=== PATIENT | female | born 1985 | race American Indian/Alaskan Native ===

== ENCOUNTER 2016-10-02 13:07 | Outpatient (CLI) | payer SELFPAY ==
[2016-10-02] MEDS ORDERED: LACTATED RINGERS 500 ML IV ONE (13:17)
[2016-10-02 13:59] LABS: Bilirubin,Urine NEG (Negative); Blood,Urine NEG (Negative); Ketones,Urine NEG (Negative); Leukocyte Esterase,Urine NEG (Negative); Mucus,Urine FEW /HPF; Nitrite,Urine NEG (Negative); Protein,Urine <15 mg/dL mg/dL (Negative); RBC,Urine < 1.0 /HPF (0.0-6.0); Urobilinogen,Urine < 2.0 mg/dL (<2.0); WBC,Urine < 1.0 /HPF (0.0-6.0)
== END 2016-10-02 14:37 | disposition home or self-care (01) ==
LOC: TRG 13:07
PROVIDERS: ATTEND Obstetrics & Gynecology
DX: O47.02 False labor before 37 completed weeks of gestation, second trimester (principal); Z3A.24 24 weeks gestation of pregnancy
CPT/HCPCS: 59025; 81001

== ENCOUNTER 2016-12-20 07:25 | Outpatient (CLI) | payer MEDICAID ==
[2016-12-20] MEDS ORDERED: LACTATED RINGERS 500 ML IV ONE (07:47)
[2016-12-20 08:24] LABS: Bacteria,Urine 1+ /HPF (Negative); Bilirubin,Urine NEG (Negative); Blood,Urine NEG (Negative); Ketones,Urine NEG (Negative); Leukocyte Esterase,Urine LG (Negative); Mucus,Urine 1+ /HPF; Nitrite,Urine NEG (Negative); Urobilinogen,Urine < 2.0 mg/dL (<2.0)
[2016-12-20 08:44] VITALS: BP 92/53
[2016-12-20] MEDS ORDERED: ROCEPHIN IM ONE (08:56)
[2016-12-20] MEDS ORDERED: XYLOCAINE 1% MPF 5 mL INFILTRATI ONE (09:06)
[2016-12-20] MEDS ORDERED: ROCEPHIN IM SCH (10:00)
== END 2016-12-20 09:55 | disposition home or self-care (01) ==
LOC: TRG 07:25
PROVIDERS: ATTEND Obstetrics & Gynecology
DX: O47.03 False labor before 37 completed weeks of gestation, third trimester (principal); Z3A.32 32 weeks gestation of pregnancy
CPT/HCPCS: 59025; 81001; 87086; 96372; J0696

== ENCOUNTER 2016-12-30 12:02 | Outpatient (CLI) | payer MEDICAID ==
[2016-12-30 12:37] VITALS: BP 93/52
[2016-12-30] MEDS ORDERED: LACTATED RINGERS 500 ML IV ONE ×2 (12:44→13:35)
[2016-12-30] MEDS ORDERED: BRETHINE ONE (13:36)
[2016-12-30] MEDS: BRETHINE SUB-Q SCH ×2 (13:37→14:25)
== END 2016-12-30 15:15 | disposition home or self-care (01) ==
LOC: TRG 12:02
PROVIDERS: ATTEND Obstetrics & Gynecology
DX: O47.03 False labor before 37 completed weeks of gestation, third trimester (principal); Z3A.34 34 weeks gestation of pregnancy
CPT/HCPCS: 59025; 96360; 96372; J3105; J7120

== ENCOUNTER 2017-02-02 20:11 | Inpatient (IN) | payer MEDICAID ==
[2017-02-02] MEDS ORDERED: NUBAIN IV PRN (21:16)
[2017-02-02] MEDS ORDERED: NARCAN 0.4 MG/1 ML IV PRN (21:16)
[2017-02-02] MEDS ORDERED: XYLOCAINE 2% INFILTRATI ONE (21:16)
[2017-02-02] MEDS ORDERED: MINERAL OIL PO PRN (21:16)
[2017-02-02] MEDS ORDERED: BRETHINE IVP PRN (21:16)
[2017-02-02] MEDS ORDERED: ePHEDrine SULFATE IV PRN (21:16)
[2017-02-02] MEDS ORDERED: SUBLIMAZE IV PRN (21:16)
[2017-02-02] MEDS ORDERED: BRETHINE SUB-Q PRN (21:16)
[2017-02-02] MEDS ORDERED: STADOL IV PRN (21:16)
[2017-02-02] MEDS ORDERED: ZOFRAN IV PRN (21:16)
[2017-02-02] MEDS ORDERED: PITOCin/NS 30 UNIT/500ML 30 UNITS/500 ML BAG IV SCH (21:30)
[2017-02-02 21:38] LABS: Hematocrit 24.5 % (30.3-42.9); Hemoglobin 8.1 gm/dl (10.1-14.3); Mean Corpuscular HGB Conc 33 % (30-34); Mean Corpuscular Hemoglobin 31 pg (28-32); Mean Corpuscular Volume 95 fl (79-97); Platelet Count 193 K/mm3 (140-440); Red Blood Count 2.58 M/mm3 (3.65-5.03); Red Cell Distribution Width 12.5 % (13.2-15.2); White Blood Count 5.7 K/mm3 (4.5-11.0)
[2017-02-02] MEDS ORDERED: PITOCin/NS 20 UNIT/1000ML DRIP 20 UNITS/1,000 ML BAG IV SCH (22:00)
--- NOTE | 2017-02-02 22:48 | History and Physical Report ---
History of Present Illness Date of examination: 02/02/17 Date of admission: 02/02/17 21:33 Chief complaint: my water broke, contractions History of present illness: Pt is a 31 year old -Micron[place] female LIONEL 02/10/17 at 38w6d presents with rupture of membranes and regular uterine contractions since 1840 PM. She was noted to be 4-5 cm on admission. She denies vaginal bleeding. She has had care at [facility] since transfer into care at 24 weeks complicated by previous section x 1 secondary to breech presentation and four previous vaginal deliveries, anemia on iron supplementation and genital herpes without lesion or prodrome. She is GBS negative. Past History Past Medical History: no pertinent history Past Surgical History: section (2014) CONTRACTS REPRESENTATIVE History: herpes Family/Genetic History: none Social history: no significant social history - Obstetrical History Expected Date of Delivery: 02/10/17 Actual Gestation: 38 Week(s) 6 Day(s) : 7 Para: 5 Hx # Term Pregnancies: 4 Number of Pregnancies: 1 Spontaneous Abortions: 1 Induced : 0 Number of Living Children: 5 Medications and Allergies Allergies Allergy/AdvReac Type Severity Reaction Status Date / Time No Known Allergies Allergy Verified 01/26/15 13:05 Home Medications Medication Instructions Recorded Confirmed Last Taken Type Doxycycline [Vibramycin CAP] 100 mg PO BID #14 capsule 04/20/14 Unknown Rx Ibuprofen [Motrin] 800 mg PO Q8H PRN #30 tablet 04/20/14 Unknown Rx Methylergonovine [Methergine] 0.2 mg PO Q8HR #6 tablet 04/20/14 Unknown Rx Amoxicillin [Trimox CAP] 500 mg PO Q8H #30 capsule 01/26/15 Unknown Rx Loratadine [Claritin] 10 mg PO DAILY #30 tablet 01/26/15 Unknown Rx Promethazine [Phenergan TAB] 25 mg PO Q6H PRN #12 tablet 01/26/15 Unknown Rx Active Meds: Active Medications Butorphanol Tartrate (Stadol) 2 mg IV Q2H PRN PRN Reason: Pain , Severe (7-10) Fentanyl (Sublimaze) 100 mcg IV Q2H PRN PRN Reason: Labor Pain Lactated Ringer's (Lactated Ringers) 1,000 mls @ 125 mls/hr IV DIRECT MARYA Oxytocin/Sodium Chloride (Pitocin/Ns 20 Unit/1000ml Drip) 20 units in 1,000 mls @ 125 mls/hr IV DIRECT MARYA Oxytocin/Sodium Chloride (Pitocin/Ns 30 Unit/500ml) 30 units in 500 mls @ 4 mls /hr IV TITR MARYA PRN Reason: Protocol Mineral Oil (Mineral Oil) 30 ml PO QHS PRN PRN Reason: Constipation Nalbuphine HCl (Nubain) 10 mg IV Q2H PRN PRN Reason: Pain, Moderate (4-6) Naloxone HCl (Narcan 0.4 Mg/1 Ml) 0.1 mg IV Q2MIN PRN PRN Reason: Res Rate </= 8 or 02 SAT < 92% Ondansetron HCl (Zofran) 4 mg IV Q8H PRN PRN Reason: Nausea And Vomiting Review of Systems All systems: negative - Vital Signs Vital signs: Vital Signs Pulse BP Pulse Ox 74 110/66 98 02/02/17 20:47 02/02/17 20:47 02/02/17 20:47 Temp Pulse Resp BP Pulse Ox 98.3 F 82 16 110/66 77 L 02/02/17 20:49 02/02/17 21:16 02/02/17 20:49 02/02/17 20:47 02/02/17 21:16 - Physical Exam Breasts: Positive: deferred Cardiovascular: Regular rate Lungs: Positive: Clear to auscultation Abdomen: Positive: soft (gravid ) Genitourinary (Female): Positive: normal external genitalia Uterus: Positive: enlarged (gravid ) Extremities: Positive: normal - Obstetrical FHR: category 1 Uterine Contraction Monitor Mode: External Cervical Dilatation: 5 Cervical Effacement Percentage: 60 station: -2 Uterine Contraction Frequency (min): 2-3 min Uterine Contraction Duration: 45 sec Uterine Contraction Pattern: Regular Uterine Tone Measurement Phase: Resting Uterine Contraction Intensity: Moderate Results Result Diagrams: 02/02/17 21:20 Abnormal lab results 02/02/17 Range/Units 21:20 RBC 2.58 L (3.65-5.03) M/mm3 Hgb 8.1 L (10.1-14.3) gm/dl Hct 24.5 L (30.3-42.9) % RDW 12.5 L (13.2-15.2) % All other labs normal. Assessment and Plan A: IUP at 38w6d Active labor Previous section x 1 for malpresentation, 4 successful vaginal deliveries Genital herpes without lesion or prodrome GBS negative P: Admit to labor and delivery. Epidural IUPC Routine intrapartum care.
[2017-02-02] MEDS: LACTATED RINGERS 1,000 ML IV SCH (23:31)
[2017-02-02] MEDS ORDERED: ePHEDrine SULFATE ONE (23:35)
[2017-02-03] MEDS ORDERED: ePHEDrine SULFATE IV PRN (00:11)
[2017-02-03] MEDS ORDERED: NARCAN 2 MG/2 ML IV PRN (00:11)
--- NOTE | 2017-02-03 00:11 | Anesthesia Consultation ---
Anesthesia Consult and Med Hx Date of service: 02/03/17 - Airway Anesthetic Teeth Evaluation: Good ROM Head & Neck: Adequate Mental/Hyoid Distance: Adequate Mallampati Class: Class II Intubation Access Assessment: Probably Good - Pulmonary Exam CTA: Yes - Cardiac Exam Cardiac Exam: RRR - Pre-Operative Health Status ASA Pre-Surgery Classification: ASA2 Proposed Anesthetic Plan: Epidural - Pulmonary Hx Smoking: No Hx Asthma: No COPD: No Hx Pneumonia: No Hx Sleep Apnea: No - Cardiovascular System Hx Hypertension: No Hx Coronary Artery Disease: No Hx Heart Attack/AMI: No Hx Angina: No - Central Nervous System Hx Seizures: No CVA: No Hx Psychiatric Problems: No - Gastrointestinal Hx Gastroesophageal Reflux Disease: Yes (mild but had attack yesterday.) - Endocrine Hx Renal Disease: No Hx End Stage Renal Disease: No Hx Liver Disease: No Hx Non-Insulin Dependent Diabetes: No Hx Thyroid Disease: No Hx Hypothyroidism: No Hx Hyperthyroidism: No - Hematic Hx Anemia: Yes Hx Sickle Cell Disease: No - Other Systems Hx Alcohol Use: No
[2017-02-03] MEDS: LACTATED RINGERS 1,000 ML IV SCH (00:27)
[2017-02-03] MEDS ORDERED: fentaNYL-BUPIV 2 MCG/ML-0.125% 200 MCG/100 ML BAG EPIDURAL SCH (01:00)
--- NOTE | 2017-02-03 03:15 | Event Note ---
Date: 02/03/17 Pt comfortable with epidural. Category II tracing. SVE: 5-/-3. AROM of forebag- copious amount of clear fluid. IUPC and FSE placed. Close monitoring of maternal and status.
[2017-02-03] MEDS ORDERED: METHERGINE IM ONE ×2 (04:15→04:16)
--- NOTE | 2017-02-03 05:30 | Procedure Note ---
OB Delivery Note - Delivery Date of Delivery: 02/03/17 Surgeon: OLIVIA MAJOR Estimated blood loss: 500cc - Vaginal Delivery presentation: vertex Delivery position: OA Intrapartum events: PROM->1hr before delivery, mult.variable deceleratio, uterine atony Delivery induction: none Delivery augmentation: pitocin Delivery monitor: internal FHT, internal uterine Route of delivery: Delivery placenta: spontaneous Episiotomy: none Delivery laceration: 1st degree Delivery repair: vicryl Anesthesia: epidural Delivery comments: Pt progressed to complete/complete/+3 and pushed to deliver a viable male neoate via over intact perineum under epidural anesthesia. Head delivered in MARIIA position followed by shoulders and body. bulb suctioned and placed on maternal abdomen. Cord blood collected. Placenta delivered spontaneously. Uterine atony noted. Methergine 0.2 mg IM administered. Uterus firm. Vagina and perineum explored. First degree perineal laceration repaired with 3-0 Vicryl. EBL 500mL. - Infant A at 1 minute: 8 at 5 minutes: 9 Infant Gender: Male (3393g (7lb 8 oz))
[2017-02-03] MEDS ORDERED: PITOCin/NS 20 UNIT/1000ML DRIP 20 UNITS/1,000 ML BAG IV SCH (06:32)
[2017-02-03] MEDS ORDERED: TYLENOL PO PRN (06:32)
[2017-02-03] MEDS ORDERED: PHENERGAN PO PRN (06:32)
[2017-02-03] MEDS ORDERED: LANSINOH TP PRN (06:32)
[2017-02-03] MEDS ORDERED: SODIUM CHLORIDE FLUSH SYRINGE 10 ML IV PRN (06:32)
[2017-02-03] MEDS ORDERED: TUCKS PAD TP PRN (06:32)
[2017-02-03] MEDS ORDERED: PHENERGAN PR PRN (06:32)
[2017-02-03] MEDS ORDERED: BENADRYL PO PRN (06:32)
[2017-02-03] MEDS ORDERED: DULCOLAX PR PRN (06:32)
[2017-02-03] MEDS ORDERED: NORCO 5/325 PO PRN (06:32)
[2017-02-03] MEDS ORDERED: MILK OF MAGNESIA PO PRN (06:32)
[2017-02-03] MEDS ORDERED: ZOFRAN IV PRN (06:32)
[2017-02-03] MEDS: MOTRIN PO SCH ×3 (07:05→18:32)
[2017-02-03] MEDS: FEOSOL PO SCH (10:18)
[2017-02-03] MEDS: PRENATAL VITAMIN PO SCH (10:18)
[2017-02-04] MEDS: MOTRIN PO SCH (00:55)
[2017-02-04] MEDS ORDERED: M-M-R II VACCINE SUB-Q ONE (05:30)
[2017-02-04] MEDS ORDERED: BOOSTRIX IM ONE (06:00)
--- NOTE | 2017-02-04 09:27 | Progress Note ---
Assessment and Plan - Patient Problems (1) Term Current Visit: Yes Status: Acute Plan to address problem: patient doing well discharge home (2) Spontaneous rupture of amniotic membranes Current Visit: Yes Status: Acute Subjective - Subjective Date of service: 02/04/17 Interval history: Patient tolerating regular diet. Pain well controlled Patient reports: appetite normal, voiding normally, pain well controlled [place]: doing well Objective - Vital Signs Latest vital signs: Vital Signs Temp Pulse Resp BP 02/04/17 00:55 18 02/04/17 00:05 98.6 F 59 L 18 107/55 02/03/17 17:15 98.2 F 56 L 18 98/43 02/03/17 12:15 98.3 F 57 L 18 101/47 Intake and Output 02/03/17 02/04/17 02/04/17 22:59 06:59 14:59 Intake Total 480 480 Balance 480 480 Intake: Oral 480 120 Intake, Free Water 360 Other: Total, Intake Amount 480 120 # Voids Void 1 1 - Exam Uterus: Present: normal, firm - Labs Labs: Abnormal lab results 02/03/17 Range/Units 17:26 Hgb 8.0 L (10.1-14.3) gm/dl Hct 24.0 L (30.3-42.9) %
--- NOTE | 2017-02-04 09:28 | Discharge Summary ---
Providers - Providers Date of Admission: 02/02/17 21:33 Date of discharge: 02/04/17 Attending physician: OLIVIA MAJOR 02/03/17 06:32 Consult to [facility] [CONS] Routine Reason For Exam: assistance with , SNS Primary care physician: OLIVIA MAJOR Hospitalization Reason for admission: active labor, rupture of membranes Delivery: Discharge diagnosis: IUP at term delivered baby: male Hospital course: Patient admitted with +SROM. Had a . uneventful Condition at discharge: Good Disposition: DC-01 TO HOME OR SELFCARE - Discharge Diagnoses (1) Term Status: Acute (2) Spontaneous rupture of amniotic membranes Status: Acute Plan - Discharge Medications Prescriptions: HYDROcodone/APAP 5-325 [[place] 5/325] 1 each PO Q6HR PRN #30 tablet PRN Reason: Pain Ibuprofen [Motrin] 800 mg PO Q8HR PRN #60 tablet PRN Reason: Pain - Provider Discharge Summary Activity: no sex for 6 weeks, no heavy lifting 4 weeks, no strenuous exercise Diet: routine Instructions: routine Additional instructions: [] Smoking cessation referral if applicable(refer to patient education folder for contact #) [] Refer to [facility] Booklet Call your doctor immediately for: * Fever > 100.5 * Heavy vaginal bleeding ( >1 pad per hour) * Severe persistent headache * Shortness of breath * Reddened, hot, painful area to leg or breast * followup 4 weeks - Follow up plan
[2017-02-04] MEDS: FEOSOL PO SCH (10:37)
[2017-02-04] MEDS: PRENATAL VITAMIN PO SCH (10:37)
[2017-02-04 10:55] VITALS: BP 95/52
== END 2017-02-04 12:00 | disposition home or self-care (01) | DRG 774 ==
LOC: TRG 20:11 → LD 21:33 → OB 02-03 06:30
PROVIDERS: ADMIT Obstetrics & Gynecology; ATTEND Obstetrics & Gynecology
PROC: 10E0XZZ Delivery of Products of Conception, External Approach (ICD-10-PCS; principal; 2017-02-03)
PROC: 0HQ9XZZ Repair Perineum Skin, External Approach (ICD-10-PCS; 2017-02-03)
PROC: 10907ZC Drainage of Amniotic Fluid, Therapeutic from Products of Conception, Via Natural or Artificial Opening (ICD-10-PCS; 2017-02-03)
PROC: 00HU33Z Insertion of Infusion Device into Spinal Canal, Percutaneous Approach (ICD-10-PCS; 2017-02-03)
PROC: 3E0R3CZ (ICD-10-PCS; 2017-02-03)
PROC: 3E0234Z Introduction of Serum, Toxoid and Vaccine into Muscle, Percutaneous Approach (ICD-10-PCS; 2017-02-03)
DX: O42.02 Full-term premature rupture of membranes, onset of labor within 24 hours of rupture (principal); O98.32 Other infections with a predominantly sexual mode of transmission complicating childbirth; A60.00 Herpesviral infection of urogenital system, unspecified; O76 Abnormality in fetal heart rate and rhythm complicating labor and delivery; O62.2 Other uterine inertia; O34.211 Maternal care for low transverse scar from previous cesarean delivery; O70.0 First degree perineal laceration during delivery; Z3A.39 39 weeks gestation of pregnancy; Z37.0 Single live birth; D64.9 Anemia, unspecified; O99.012 Anemia complicating pregnancy, second trimester
CPT/HCPCS: 36415; 85014; 85018; 85027; 86592; 86850; 86900; 86901; 88307; 90471; 90715; 99211; G0463; J2210; J2590; J7120

== ENCOUNTER 2018-03-26 22:25 | Emergency (ER) | payer MEDICAID ==
--- NOTE | 2018-03-26 23:26 | XRay Report ---
FINAL REPORT PROCEDURE: XR WRIST 2V LT TECHNIQUE: LEFT wrist radiographs, AP and lateral views. HISTORY: left wrist pain COMPARISON: No prior studies are available for comparison. FINDINGS: Fracture(s)and/or Dislocation(s): None. Alignment: Normal. Joint space(s): Normal. Soft tissues: Normal. Bone mineralization: Normal. Foreign bodies: None. IMPRESSION: Normal Examination
[2018-03-26] MEDS ORDERED: ATIVAN ONE (23:44)
[2018-03-27] MEDS ORDERED: MOTRIN PO ONE (01:04)
--- NOTE | 2018-03-27 01:09 | Emergency Department Report ---
Upper Extremity - HPI Chief Complaint: Extremity Injury, Upper Stated Complaint: WRIST PAIN Time Seen by Provider: 03/27/18 00:53 Upper Extremity: Left Wrist Occurred When: 5 Days Symptoms: Yes Pain with Movement, Yes Weakness, Yes Swelling, No Deformity, No Limited Range of Movement, No Numbness, No Bruising/Ecchymosis, No Laceration or Abrasion Other History: 32-year-old [place]an female comes in for complaint of left wrist pain in bump on left wrist. Patient denies any injury. She reports this been going on since Thursday she has taken [id number] Tylenol. She has no past medical history currently takes no medications on a daily basis and has no known drug allergies. ED Review of Systems ROS: Stated complaint: WRIST PAIN Other details as noted in HPI Musculoskeletal: arthralgia (left wrist) Skin: other (bump on left wrist) ED Past Medical Hx - Past Medical History Previous Medical History?: No Hx Hypertension: No Hx Heart Attack/AMI: No Hx Congestive Heart Failure: No Hx Diabetes: No Hx Deep Vein Thrombosis: No Hx Liver Disease: No Hx Renal Disease: No Hx Sickle Cell Disease: No Hx Seizures: No Hx Asthma: No Hx COPD: No Hx HIV: No - Surgical History Past Surgical History?: Yes Additional Surgical History: c section - Social History Smoking Status: Never Smoker Substance Use Type: None - Medications Home Medications: Home Medications Medication Instructions Recorded Confirmed Last Taken Type Ferrous Sulfate [Feosol] 325 mg PO QDAY 02/02/17 02/02/17 02/02/17 History Vit-Fe Fumar-FA [ 1 tab PO QDAY 02/02/17 02/02/17 02/02/17 History Vitamin] HYDROcodone/APAP 5-325 [[place] 1 each PO Q6HR PRN #30 tablet 02/04/17 Unknown Rx 5/325] Ibuprofen [Motrin] 800 mg PO Q8HR PRN #60 tablet 02/04/17 Unknown Rx Ibuprofen [Motrin 600 MG tab] 600 mg PO Q8H #30 tablet 03/27/18 Unknown Rx Upper Extremity Exam - Exam General: Vital signs noted. No distress. Alert and acting appropriately. Head and Torso: No HEENT Abnormality, No Neck Tenderness, No Chest/Lungs Abnormality, No Abdominal Tenderness, No Back Tenderness Shoulder Exam: Yes Normal Range of Motion in Shoulder, No Shoulder Tenderness, No Clavicle Tenderness, No Shoulder Deformity, No AC Joint Tenderness Arm Exam: No Arm/Humerus Tenderness, No Arm Deformity Wrist: Yes Wrist Tenderness (positive Palen and tinel, cystlike structure of the bursa), No Wrist Deformity, No Snuffbox Tenderness, No Pain with Axial Thumb Compression Hand: Yes Normal ROM in Digit(s), No Hand Tenderness, No Hand Deformity, No Digit Tenderness, No Digit(s) Deformity, No Tendon Dysfunction CMS Exam: No Broken Skin, No Normal Distal Pulses, No Normal Capillary Refill, No Normal Distal Sensation ED Course Vital Signs 03/26/18 22:32 Temperature 98.6 F Pulse Rate 67 Respiratory 17 Rate Blood Pressure 108/48 O2 Sat by Pulse 99 Oximetry ED Medical Decision Making - Radiology Data Radiology results: report reviewed FINAL REPORT PROCEDURE: XR WRIST 2V LT TECHNIQUE: LEFT wrist radiographs, AP and lateral views. HISTORY: left wrist pain COMPARISON: No prior studies are available for comparison. FINDINGS: Fracture(s)and/or Dislocation(s): None. Alignment: Normal. Joint space(s): Normal. Soft tissues: Normal. Bone mineralization: Normal. Foreign bodies: None. IMPRESSION: Normal Examination Transcribed By: [facility] Dictated By: CHRISTIAN REESE MD Electronically Authenticated By: CHRISTIAN REESE MD Signed Date/Time: 03/26/182323 DD/ 23 TD/TT: 03/26/182323 - Medical Decision Making Patient has been evaluated by this provider fast track. Ibuprofen given for pain management. Wrist brace for left wrist ordered. Status the patient is appears to have a ganglionic cyst and carpal tunnel discussed the patient ibuprofenbest management and hand specialist. Patient verbalized understanding. Critical care attestation.: If time is entered above; I have spent that time in minutes in the direct care of this critically ill patient, excluding procedure time. ED Disposition Clinical Impression: Ganglion cyst of dorsum of left wrist, Carpal tunnel syndrome of left wrist Disposition: -01 TO HOME OR SELFCARE Is pt being admited?: No Does the pt Need Aspirin: No Condition: Stable Instructions: Carpal Tunnel Syndrome (ED) Additional Instructions: Please take pain medication as prescribed. Follow-up with orthopedics or hand specialists. Where wrist brace. Prescriptions: Ibuprofen [Motrin 600 MG tab] 600 mg PO Q8H #30 tablet Referrals: PRIMARY CAREMD [Primary Care Provider] - 3-5 Days CHELLE MORAN MD [Staff Physician] - 3-5 Days [facility] [Provider Group] - 3-5 Days Forms: Work/School Release Form(ED), Accompanied Note
[2018-03-27 02:39] VITALS: BP 110/58
== END 2018-03-27 02:39 | disposition home or self-care (01) ==
LOC: ED 22:25
DX: M67.432 Ganglion, left wrist (principal)
CPT/HCPCS: 29260; J2060

== ENCOUNTER 2019-04-05 14:33 | Outpatient (CLI) | payer MEDICAID ==
[2019-04-05] MEDS ORDERED: LACTATED RINGERS 1,000 ML IV SCH (17:00)
[2019-04-05 17:01] LABS: Bacteria,Urine 2+ /HPF (Negative); Bilirubin,Urine NEG (Negative); Blood,Urine NEG (Negative); Color,Urine Yellow (Yellow); Mucus,Urine 1+ /HPF; Protein,Urine <15 mg/dL mg/dL (Negative); Urobilinogen,Urine < 2.0 mg/dL (<2.0)
[2019-04-05 17:18] VITALS: BP 105/52
== END 2019-04-05 19:11 | disposition home or self-care (01) ==
LOC: TRG 14:33
PROVIDERS: ATTEND Obstetrics & Gynecology
DX: O62.9 Abnormality of forces of labor, unspecified (principal); Z3A.35 35 weeks gestation of pregnancy
CPT/HCPCS: 81001; 96360; 96361; J7120

== ENCOUNTER 2019-04-13 22:06 | Outpatient (CLI) | payer MEDICAID | END 2019-04-13 23:55 | disposition home or self-care (01) | LOC: TRG 22:06 | PROVIDERS: ATTEND Obstetrics & Gynecology | DX: O62.8 Other abnormalities of forces of labor (principal); Z3A.36 36 weeks gestation of pregnancy | CPT/HCPCS: 59025 ==

== ENCOUNTER 2019-04-23 10:46 | Outpatient (CLI) | payer MEDICAID ==
[2019-04-23 14:06] VITALS: BP 113/51
[2019-04-23 16:06] LABS: Bilirubin,Urine NEG (Negative); Blood,Urine NEG (Negative); Color,Urine Straw (Yellow); Protein,Urine <15 mg/dL mg/dL (Negative); Urobilinogen,Urine < 2.0 mg/dL (<2.0); WBC,Urine < 1.0 /HPF (0.0-6.0)
== END 2019-04-23 16:00 | disposition home or self-care (01) ==
LOC: TRG 10:46
PROVIDERS: ATTEND Obstetrics & Gynecology
DX: O26.892 Other specified pregnancy related conditions, second trimester (principal); R42 Dizziness and giddiness; I10 Essential (primary) hypertension; Z3A.27 27 weeks gestation of pregnancy
CPT/HCPCS: 59025; 81001

== ENCOUNTER 2019-07-14 15:15 | Emergency (ER) | payer MEDICAID ==
[2019-07-14 16:26] VITALS: BP 112/39
--- NOTE | 2019-07-14 16:27 | Event Note ---
ED Screening Note Date of service: 07/14/19 Time: 16:24 ED Screening Note: 34 y o female presents with body aches and small inner lip lac with dental chipped today s/p fall at home no loc This initial assessment/diagnostic orders/clinical plan/treatment(s) is/are subject to change based on patients health status, clinical progression and re- assessment by fellow clinical providers in the ED. Further treatment and workup at subsequent clinical providers discretion. Patient/guardian urged not to elope from the ED as their condition may be serious if not clinically assessed and managed. Initial orders include: acc eval
[2019-07-14 19:11] LABS: Basophils % (Auto) 0.3 % (0.0-1.8); Eosinophils # (Auto) 0.1 K/mm3 (0.0-0.4); Eosinophils % (Auto) 1.6 % (0.0-4.3); Hematocrit 36.6 % (30.3-42.9); Hemoglobin 12.1 gm/dl (10.1-14.3); Lymphocytes # (Auto) 2.6 K/mm3 (1.2-5.4); Lymphocytes % (Auto) 38.5 % (13.4-35.0); Mean Corpuscular HGB Conc 33 % (30-34); Mean Corpuscular Volume 91 fl (79-97); Monocytes # (Auto) 0.5 K/mm3 (0.0-0.8); Monocytes % (Auto) 6.7 % (0.0-7.3); Platelet Count 312 K/mm3 (140-440); Red Blood Count 4.04 M/mm3 (3.65-5.03); Red Cell Distribution Width 13.3 % (13.2-15.2)
[2019-07-14 19:30] LABS: Alanine Aminotransferase 23 units/L (7-56); Albumin 4.3 g/dL (3.9-5); BUN/Creatinine Ratio 33; Blood Urea Nitrogen 20 mg/dL (7-17); Calcium 9.3 mg/dL (8.4-10.2); Hemolysis Index 11
[2019-07-14] MEDS ORDERED: HYDROcodone/ACETAMINOPHEN 5-325 MG TAB PO ONE (20:04)
[2019-07-14] MEDS ORDERED: HYDROGEN PEROXIDE 118 ML SOLUTION ONE (20:05)
--- NOTE | 2019-07-14 20:19 | Emergency Department Report ---
HPI - General Chief Complaint: Fall Time Seen by Provider: 07/14/19 19:55 - HPI HPI: Room 40 The patient is a 34-year-old female presenting with a chief complaint of facial laceration. The patient states she's had intermittent weakness since his sponta neous vaginal delivery 05/10/2019 causing her legs to give out. Patient states this happened today causing the patient to fall to the ground striking her face but not losing consciousness. The patient states she chipped her tooth and her tooth bit through her lower lip. Location: [See above] Duration: [See above] Quality: [See above] Severity: [See above] Timing: [See above] Context: [See above] Modifying factors: [See above] Associated signs and symptoms: [see above] ED Past Medical Hx - Past Medical History Previous Medical History?: No - Surgical History Past Surgical History?: Yes Additional Surgical History: c section - Family History Family history: no significant - Social History Smoking Status: Never Smoker Substance Use Type: None - Medications Home Medications: Home Medications Medication Instructions Recorded Confirmed Last Taken Type Vit-Fe Fumar-FA [ 1 tab PO QDAY 02/02/17 05/10/19 05/09/19 10:00 History Vitamin] Ferrous Sulfate [Ferrous Sulfate 324 mg PO BID #60 tablet. 05/11/19 Unknown Rx 324 MG] Ibuprofen [Motrin] 600 mg PO Q6H PRN #60 tablet 05/11/19 Unknown Rx Amoxicillin/K Clav Tab [Augmentin 1 each PO Q12HR #14 tablet 07/14/19 Unknown Rx 500 MG TAB] Chlorhexidine Mouthwash [Peridex] 15 ml MM BID #1 bottle 07/14/19 Unknown Rx HYDROcodone/APAP 5-325 [[place] 1 - 2 each PO Q6HR PRN #10 tablet 07/14/19 Unknown Rx 5/325] ED Review of Systems ROS: Stated complaint: VAGINAL BLEEDING/CHIPPED TOOTH Other details as noted in HPI Constitutional: no symptoms reported Eyes: denies: eye pain ENT: denies: throat pain Respiratory: no symptoms reported Cardiovascular: denies: chest pain Endocrine: no symptoms reported Gastrointestinal: denies: abdominal pain Physical Exam - Physical Exam Vital Signs: Vital Signs 07/14/19 16:23 Temperature 98.1 F Pulse Rate 74 Respiratory 16 Rate Blood Pressure 112/39 O2 Sat by Pulse 100 Oximetry Physical Exam: GENERAL: The patient is well-developed well-nourished female sitting in wheelchair not appear to be in acute distress HEENT: Normocephalic. Atraumatic. Approximately 3 mm laceration/puncture wound to the outside skin below the lower lip. Small defect seen on the inner lower lip NECK: No axial tenderness to palpation. No step-off. Full range of motion CHEST/LUNGS: There is no respiratory distress noted. HEART/CARDIOVASCULAR: Regular. There is no tachycardia. SKIN: See HEENT above. There is no diaphoresis. NEURO: The patient is awake, alert, and oriented. The patient is cooperative. The patient has no focal neurologic deficits. The patient has normal speech MUSCULOSKELETAL: There is no evidence of acute injury. ED Course Vital Signs 07/14/19 16:23 Temperature 98.1 F Pulse Rate 74 Respiratory 16 Rate Blood Pressure 112/39 O2 Sat by Pulse 100 Oximetry - Laceration /Wound Repair Face Wound Location: face Wound Length (cm): 1 Wound's Depth, Shape: linear Wound Explored: clean Irrigated w/ Saline (ccs): 120 Betadine Prep?: Yes Anesthesia: Lidocaine w/ Epi Volume Anesthetic (ccs): 3 Wound Repaired With: sutures Suture Size/Type: 6:0, proline Number of Sutures: 2 Sterile Dressing Applied?: Yes ED Medical Decision Making - Lab Data Result diagrams: 07/14/19 18:26 07/14/19 18:26 - Medical Decision Making I explained to the mother and father that the patient needs to pump and discard her breast milk for at least 3 days before resuming breast-feeding while taking narcotic pain medication. I explained the risk of transmission of narcotics to the infant via breast milk if this is not done. I explained the risks of i ncreased morbidity and/or mortality to the if narcotics are transmitted. Parents verbalized understanding - Differential Diagnosis lip laceration Critical care attestation.: If time is entered above; I have spent that time in minutes in the direct care of this critically ill patient, excluding procedure time. ED Disposition Clinical Impression: Lip laceration Disposition: DC-01 TO HOME OR SELFCARE Is pt being admited?: No Does the pt Need Aspirin: No Condition: Stable Instructions: Suture Care (ED), Laceration (ED) Additional Instructions: Your sutures need to be removed in 3-5 days. It is very important that she do not breast-feed her child while taking the narcotic pain medication prescribed to her and administered 2 in the ED today. While taking this medication it is important that you continue to pump and discard your breast milk for AT LEAST 3 DAYS BEFORE RESUMING BREAST-FEEDING. FAILURE TO DO SO WILL RESULT IN TRANSMISSION OF NARCOTIC MEDICATION TO YOUR WHICH CAN RESULT IN SERIOUS ILLNESSES AND/OR . Return to the emergency department should you develop worsening symptoms, inability to tolerate food or liquids, high fever or any other concerns Prescriptions: Amoxicillin/K Clav Tab [Augmentin 500 MG TAB] 1 each PO Q12HR #14 tablet HYDROcodone/APAP 5-325 [[place] 5/325] 1 - 2 each PO Q6HR PRN #10 tablet PRN Reason: Pain Chlorhexidine Mouthwash [Peridex] 15 ml MM BID #1 bottle Referrals: TRACEE CARDENAS MD [Primary Care Provider] - 3-5 Days PRIMARY CAREMD [Referring] - 3-5 Days Time of Disposition: 21:07
[2019-07-14] MEDS ORDERED: NEOMY 3.5 MG/BACIT 400 UNITS/POLY B 5000 UNITS/GM OINT PACKET TP ONE ×2 (21:05→21:07)
== END 2019-07-14 21:26 | disposition home or self-care (01) ==
LOC: ED 15:15
DX: S01.511A Laceration without foreign body of lip, initial encounter (principal); R53.1 Weakness; K03.81 Cracked tooth; Z98.890 Other specified postprocedural states; Z79.899 Other long term (current) drug therapy; W18.39XA Other fall on same level, initial encounter; Y93.89 Activity, other specified; Y92.89 Other specified places as the place of occurrence of the external cause; Y99.8 Other external cause status
CPT/HCPCS: 36415; 80053; 85025; A6250